=== PATIENT | female | born 2000 | race Two or more races ===

== ENCOUNTER 2025-03-03 11:21 | Outpatient (CLI) | payer OTHER | END 2025-03-03 11:23 | disposition home or self-care (01) | LOC: PRENATAL 11:21 | DX: O44.00 Complete placenta previa NOS or without hemorrhage, unspecified trimester (principal); O99.210 Obesity complicating pregnancy, unspecified trimester; Z3A.21 21 weeks gestation of pregnancy ==

== ENCOUNTER 2025-05-26 08:39 | Outpatient (CLI) | payer OTHER | END 2025-05-26 08:40 | disposition home or self-care (01) | LOC: PRENATAL 08:39 | PROVIDERS: ATTEND Obstetrics & Gynecology Maternal & Fetal Medicine | DX: O26.849 Uterine size-date discrepancy, unspecified trimester (principal); O36.8130 Decreased fetal movements, third trimester, not applicable or unspecified; O99.210 Obesity complicating pregnancy, unspecified trimester; Z3A.33 33 weeks gestation of pregnancy ==